=== PATIENT | male | born 1945 | race Caucasian/White ===

== ENCOUNTER → 2017-02-24 | Outpatient (CLI) | payer OTHER ==
[~2017-02-24] MED LIST: IOPAMIDOL (ISOVUE-300) 100 ML BTL IV ONE
== END ==
LOC: FIMAGING 12:51
PROVIDERS: ATTEND Physician Assistant
DX: R10.32 Left lower quadrant pain (principal); K57.32 Diverticulitis of large intestine without perforation or abscess without bleeding; R93.3 Abnormal findings on diagnostic imaging of other parts of digestive tract
CPT/HCPCS: 74177; Q9967

== ENCOUNTER 2017-06-23 09:38 | Day surgery (SDC) | payer OTHER ==
--- NOTE | 2017-06-23 10:03 | PDANEPAE ---
ANE History of Present Illness 72 yo m here for colo ANE Past Medical History - Cardiovascular History Hx Hypertension: Yes Hx Arrhythmias: No Hx Chest Pain: No Hx Coronary Artery / Peripheral Vascular Disease: Yes Hx CHF / Valvular Disease: Yes Hx Palpitations: No Cardiovascular History Comment: CAD. S/P CABG WITH STENTING 07/2015. HYPERLIPIDEMIA. VALVULAR DISEASE. MILD AORTIC INSUFFICIENCY. ISCHEMIC CARDIOMYOPATHY - Pulmonary History Hx COPD: Yes Hx Asthma/Reactive Airway Disease: No Hx Recent Upper Respiratory Infection: No Hx Oxygen in Use at Home: No Hx Sleep Apnea: No Sleep Apnea Screening Result - Last Documented: Positive Pulmonary History Comment: LV TRIGGERS. GETS WHEEZY AT CERTAIN TIMES- HASN'T USED ALBUTEROL IN AGES - Neurologic History Hx Cerebrovascular Accident: No Hx Seizures: No Hx Dementia: No - Endocrine History Hx Diabetes: No - Renal History Hx Renal Disorders: Yes Renal History Comment: DIFFICULTY EMPTYING BLADDER - Liver History Hx Hepatic Disorders: No - Neurological & Psychiatric Hx Hx Neurological and Psychiatric Disorders: Yes Neurological / Psychiatric History Comment: INSOMNIA. DEPRESSION - Cancer History Hx Cancer: No - Congenital Disorder History Hx Congenital Disorders: No - GI History Hx Gastrointestinal Disorders: No Gastrointestinal History Comment: DIVERTICULITIS. OCC REFLUX. OCC DIARRHEA/ CONSTIPATION. "SOMETHING IS NOT RIGHT- THAT IS WHY I AM COMING IN" - Other Health History Other Health History: WEARS GLASSES - Chronic Pain History Chronic Pain: Yes (CHRONIC PAIN TO BACK AND BILATERAL LEGS) - Surgical History Prior Surgeries: BACK SURGERY. OPEN HEART SURGERY. CARDIAC STENTS ANE Review of Systems - Exercise capacity Exercise capacity: >=4 METS ANE Patient History - Allergies Allergies/Adverse Reactions: amoxicillin [From Augmentin] Allergy (Mild, Verified 06/15/17 14:32) Vomiting bupropion HCl [From Wellbutrin] Allergy (Mild, Verified 06/15/17 14:32) Loss of consciousness clavulanic acid [From Augmentin] Allergy (Mild, Verified 06/15/17 14:32) Vomiting lamotrigine [From Lamictal] Allergy (Mild, Verified 06/15/17 14:32) Rash paroxetine HCl [From Paxil] Allergy (Mild, Verified 06/15/17 14:32) Loss of consciousness - Home Medications Home medications: home medication list seen and reviewed Home Medications: Albuterol [Proventil Inhaler HFA (*)] 08/09/15 [Last Taken Unknown] Atorvastatin Calcium [Lipitor 20 mg (*)] 08/09/15 [Last Taken Unknown] Dapsone 08/09/15 [Last Taken 08/08/15] Herbals/Supplements -Info Only 08/09/15 [Last Taken Unknown] Losartan Potassium [Cozaar] 08/09/15 [Last Taken 08/09/15] Metoprolol Tartrate [Lopressor 25 mg (*)] 08/09/15 [Last Taken Unknown] Sertraline HCl [Zoloft 100mg (*)] 08/09/15 [Last Taken Unknown] Terazosin HCl [Hytrin 5 MG (*)] 08/09/15 [Last Taken 08/08/15] Triamterene/Hctz 37.5/25 [Dyazide 37.5/25 (*)] 08/09/15 [Last Taken 08/09/15] clonazePAM [klonoPIN (*)] 08/09/15 [Last Taken 08/09/15] hydrOXYzine HCL [Hydroxyzine HCl] 08/09/15 [Last Taken 08/08/15] Aspirin EC [Aspirin EC 325 mg (*)] 06/15/17 [Last Taken Unknown] - NPO status NPO Status: no food or drink >8 hours - Anes Hx Anes Hx: no prior problems - Smoking Hx Smoking Status: Heavy smoker (50pack years) - Alcohol Use Alcohol Use: Rarely - Family Anes Hx Family Anes Hx: none Family Hx Anesthesia Complications: NONE ANE Labs/Vital Signs - Vital Signs Vital Signs: reviewed preoperatively; see RN documention for details Height: 162.56 cm Weight: 77.111 kg ANE Physical Exam - Airway Neck exam: FROM Mallampati Score: Class 2 Mouth exam: poor dentition Mouth image: 1 - missing 2 - missing 3 - missing 4 - missing - Pulmonary Pulmonary: no respiratory distress - Cardiovascular Cardiovascular: regular rate and rhythym - ASA Status ASA Status: III ANE Anesthesia Plan Anesthesia Plan: GA with mask Total IV Anesthesia: y
[2017-06-23] MEDS ORDERED: LR 1,000 ML IV ONE (10:18)
[2017-06-23] MEDS ORDERED: PROPOFOL/EMULSION 500 MG/50 ML BOTTLE IV ONE (10:48)
--- NOTE | 2017-06-23 10:49 | PDGENHP ---
History & Physical Chief Complaint: LLQ pain Relevant Physical Exam: GEN: NAD. Cardiac: RRR. Lungs: CTA B. Abd: Soft, nt, nd
[2017-06-23] MEDS ORDERED: ONDANSETRON 4 MG/2 ML VIAL IVP PRN (11:08)
[2017-06-23] MEDS ORDERED: NALOXONE HCL 0.4 MG/ML INJ IVP PRN (11:08)
[2017-06-23] MEDS ORDERED: ACETAMINOPHEN 500 MG TAB PO PRN (11:08)
[2017-06-23] MEDS ORDERED: PROPOFOL 200 MG/20 ML VIAL ONE (11:44)
--- NOTE | 2017-06-23 11:52 | POSTOPPROG ---
Post Op Note Date of Operation: 06/23/17 Surgeon: Alan Stuart Pre-op Diagnosis: LLQ abdominal pain Post-op Diagnosis: Severe left sided diverticulosis, ascending colon polyp 2mm Indication: LLQ abdominal pain Procedure: Colonoscopy with bx Findings: Severe left sided diverticulosis, AC polyp s/p removal Inf/Abcess present in the surg proc area at time of surgery?: No
[2017-06-23] MEDS ORDERED: SUCCINYLCHOLINE CHLORIDE*ANESTHESIA ONLY*200 MG/10 ML SYR IVP ONE (12:18)
--- NOTE | 2017-06-23 12:56 | GPN ---
[f rep st] PROCEDURE NOTE PREPROCEDURE DIAGNOSES: 1. Left lower quadrant abdominal pain. 2. History of diverticulitis. 3. History of colon polyps. 4. History of poor colon prep. POSTPROCEDURE DIAGNOSES: 1. Severe left-sided diverticulosis. 2. Small ascending colon polyp, status post removal. 3. Poor colon prep. PROCEDURE: Colonoscopy with biopsies. MEDICATIONS: Monitored anesthesia care. INDICATIONS: The patient is a 72-year-old gentleman with history of left lower quadrant abdominal p ain, and diverticulitis, as well as a poor colon preparation in the past. He is here for colonoscop y for evaluation of left lower quadrant abdominal pain. The risks and the benefits of the procedure discussed with the patient. Consent obtained. Risks include, but not limited to bleeding, perfora tion, risks associated with sedation. The patient is ASA class 3. DESCRIPTION OF PROCEDURE: The adult colonoscope was advanced into the cecum. The cecum was obscure d by stool. The ileocecal valve appeared normal. There was stool throughout the right colon. Smal l polyps could have been missed. Normal hepatic flexure. The transverse colon showed a 2 mm polyp, which was removed using cold biopsy forceps, sent to pathology. The splenic flexure was normal. H e has severe left-sided diverticulosis in the sigmoid colon and descending colon. Retroflexed views in the rectum were normal. IMPRESSION: 1. Poor colon prep. Small polyps could have been missed. 2. Transverse colon polyp, 2 mm, removed using cold biopsy forceps. 3. Severe left-sided diverticulosis. RECOMMENDATIONS: 1. Discharge home with escort. 2. Advance diet as tolerated. 3. Avoidance of constipation, high-fiber diet. 4. We will discuss his options regarding repeat colonoscopy. He underwent a 2-day prep this time, and it was discussed how to proceed regarding whether to attempt a repeat colonoscopy. 5. Follow up with final biopsy results. Results available within 10 days. Thank you for allowing me to participate in the care of your patient. Please do not hesitate to damari stevens with questions. /[id number]/MODL
[2017-06-23 13:35] VITALS: TEMP 97.7
[2017-06-23] MEDS ORDERED: ALBUTEROL 3 ML DEYVIAL IH ONE (14:47)
[2017-06-23 15:03] VITALS: BP 127/71
[2017-06-23 15:08] VITALS: PULSE 69; RESP 24; O2SAT 97
--- NOTE | 2017-06-23 20:52 | POSTANESTH ---
Post Anesthetic Evaluation Cardiovascular Status: Normal, Stable Respiratory Status: Tx Decrease in SpO2 Level of Consciousness/Mental Status: Can Participate in Eval, Mildly Sleepy, Arousable Pain Control: Adequate, Prn Tx Ordered Nausea/Vomiting Control: Adequate, Prn Tx Ordered Complications Possibly Related to Anesthesia: None Noted Notes: During procedure an program support assistant placed pressure on the pt's abdomen in order to facilitate scope passage, this caused a small amount of clear gastric fluid to reflux. Pt suctioned immediately and decrease in O2 jose d treated with mask ventilation. Procedure was completed without further event. In PACU mild hypoxemia (sats in the 80's) treated with BiPAP-- discharge criteria emphasized to be normal sats on RA or pt should be admitted for observation.
== END 2017-06-23 16:30 | disposition home or self-care (01) ==
LOC: FSGY 09:38
PROVIDERS: ATTEND Internal Medicine Gastroenterology
PROC: 0DBL8ZX Excision of Transverse Colon, Via Natural or Artificial Opening Endoscopic, Diagnostic (ICD-10-PCS; principal; 2017-06-23 11:00)
DX: K57.30 Diverticulosis of large intestine without perforation or abscess without bleeding (principal); D12.3 Benign neoplasm of transverse colon; R10.32 Left lower quadrant pain; G47.33 Obstructive sleep apnea (adult) (pediatric); Z86.010 Personal history of colon polyps; Z87.19 Personal history of other diseases of the digestive system
CPT/HCPCS: J0330; J2704

== ENCOUNTER → 2018-06-10 | Outpatient (CLI) | payer OTHER | LOC: FIMAGING 15:53 | PROVIDERS: ATTEND Physician Assistant | DX: R14.0 Abdominal distension (gaseous) (principal); K59.00 Constipation, unspecified ==